=== PATIENT | male | born 1980 | race Caucasian/White ===

== ENCOUNTER 2017-09-15 19:14 | Emergency (ER) | payer SELFPAY ==
--- NOTE | 2017-09-15 19:25 | PDOC ---
Rapid Medical Evaluation Time Seen by Provider: 09/15/17 19:24 Medical Evaluation: Allergies Allergy/AdvReac Type Severity Reaction Status Date / Time No Known Allergies Allergy Verified 05/15/12 19:15 09/15/17 19:24 I have performed a brief in-person evaluation of this patient. The patient presents with a chief complaint of: "i got something in my eye yesterday, when i woke up i felt something in it when i blinked" Pertinent physical exam findings: injected L eye I have ordered the following: nothing The patient will proceed to the ED for further evaluation. Discharge Disposition - Diagnosis Conjunctivitis - Referrals - Patient Instructions - Post Discharge Activity
[2017-09-15 19:27] VITALS: BP 124/75; PULSE 67; TEMP 98.3; BMI 27.4
[2017-09-15] MEDS ORDERED: FLUORESCEIN NA 1 EA STRIP OS ONE (19:36)
[2017-09-15] MEDS ORDERED: ERYTHROMYCIN 0.5% OPHTHALMIC OINTMENT 3.5 GM TUBE OS ONE (19:36)
[2017-09-15] MEDS ORDERED: TETRACAINE 0.5% OPHTH SOLN 2 ML BOTTLE OS ONE (19:37)
[2017-09-15] MEDS ORDERED: TETRACAINE 0.5% OPHTH SOLN 2 ML BOTTLE ONE (19:42)
[2017-09-15] MEDS ORDERED: FLUORESCEIN NA 1 EA STRIP ONE (19:42)
[2017-09-15] MEDS ORDERED: ERYTHROMYCIN 0.5% OPHTHALMIC OINTMENT 3.5 GM TUBE ONE (19:43)
--- NOTE | 2017-09-15 19:50 | PDOC ---
History of Present Illness - General Chief Complaint: Eye Problem Stated Complaint: EYE INJURY Time Seen by Provider: 09/15/17 19:24 History Source: Patient Exam Limitations: No Limitations - History of Present Illness Initial Comments: 09/15/17 20:16 Yesterday morning woke up and felt a foreign body sensation to his left eye. States was injected, and felt he may have seen substance on his eye. Used some water but did not resolved. Today has become more injected and painful. Denies visual changes, denies any drainage from his eyes, no other injury injury. Tetanus is up-to-date Timing/Duration: unsure Past History - Past Medical History Allergies/Adverse Reactions: Allergies Allergy/AdvReac Type Severity Reaction Status Date / Time No Known Allergies Allergy Verified 09/15/17 19:25 Home Medications: Ambulatory Orders NK [No Known Home Medication] 09/15/17 COPD: No - Suicide/Smoking/Psychosocial Hx Smoking Status: No Smoking History: Never smoked Number of Cigarettes Smoked Daily: 0 Review of Systems - Review of Systems Able to Perform ROS?: Yes Is the patient limited Hungarian proficient: Yes Constitutional: Yes: Symptoms Reported, See HPI. No: Fever, Malaise HEENTM: Yes: Symptoms Reported, See HPI, Eye Pain, Tearing. No: Blurred Vision , Recent change in vision Respiratory: Yes: Symptoms reported. No: See HPI Musculoskeletal: Yes: Symptoms Reported All Other Systems: Reviewed and Negative *Physical Exam - Vital Signs Last Vital Signs Temp Pulse Resp BP Pulse Ox 98.3 F 67 18 124/75 100 09/15/17 19:25 09/15/17 19:25 09/15/17 19:25 09/15/17 19:25 09/15/17 19:25 - Physical Exam General Appearance: Yes: Nourished, Appropriately Dressed HEENT: positive: NAEL, Normal ENT Inspection, TMs Normal, Pharynx Normal, Other (injected left eye, with mild photophobia. Pupils intact, no hyphema, no drainage from eyes, no swelling.) Respiratory/Chest: positive: Lungs Clear, Normal Breath Sounds Extremity: positive: Normal Capillary Refill, Normal Inspection Integumentary: positive: Normal Color, Dry, Warm Neurologic: positive: blow mold operator II-XII NML intact, Fully Oriented, Alert, Normal Mood/ Affect, Normal Response, Motor Strength 5/5 Medical Decision Making - Medical Decision Making 09/15/17 20:18 Limited exam reveals a corneal ulcer/abrasion to left upper inner aspect at approximately 10:00. Corneas intact, no foreign body detected. Eyelid slept without any obvious foreign body removal is within normal limits. Erythromycin ointment applied *DC/Admit/Observation/Transfer Diagnosis at time of Disposition: Corneal abrasion, right Qualifiers: Encounter type: initial encounter Qualified Code(s): S05.01XA - Injury of conjunctiva and corneal abrasion without foreign body, right eye, initial encounter - Discharge Dispostion Disposition: HOME Condition at time of disposition: Stable Admit: No - Referrals Referrals: Filomena Gray MD [Staff Physician] - - Patient Instructions Printed Discharge Instructions: DI for Corneal Abrasion Additional Instructions: Rest, avoid rubbing eyes Wash hands, use eye drops as directed, wash hands after use May use eye lubricating drops as often as needed erythromycin ointment, one thin film 3 times a day for 5 days Tylenol or ibuprofen for pain relief Avoid contact with others until redness and discharge is gone from eyes. Followup with ophthalmology in one to 2 days for thorough exam Return to emergency department for worsened pain, swelling, vision problems. - Post Discharge Activity Forms/Work/School Notes: Back to Work
[2017-09-15] MEDS ORDERED: IBUPROFEN 600 MG TABLET (FP) PO ONE (20:33)
== END 2017-09-15 21:15 | disposition home or self-care (01) ==
LOC: JERFT 19:14
DX: S05.01XA Injury of conjunctiva and corneal abrasion without foreign body, right eye, initial encounter (principal); X58.XXXA Exposure to other specified factors, initial encounter; Y93.89 Activity, other specified; Y92.032 Bedroom in apartment as the place of occurrence of the external cause; Y99.8 Other external cause status
CPT/HCPCS: 99281-25